=== PATIENT | female | born 1990 | race Caucasian/White ===

== ENCOUNTER 2017-02-24 09:57 | Emergency (ER) | payer MEDICAID ==
[2017-02-24 10:08] VITALS: BP 97/58; PULSE 85; RESP 17; TEMP 98.1; O2SAT 97
--- NOTE | 2017-02-24 10:30 | EDPHY ---
H & P Time Seen by Provider: 02/24/17 10:27 HPI/ROS: CHIEF COMPLAINT: Abdominal pain, recent surgery HISTORY OF PRESENT ILLNESS: This patient is a 26 year old female complaining of abdominal pain secondary to a laparoscopic hernia repair last , 02/20/[address] Wagoner. She states she had been taking oxycodone for pain, but felt quite drowsy with this medication and attempted to switch prescriptions over the weekend. She disposed of her pills in a pharmacy drop box before being informed that her prescription would not be able to be refilled. She has been taking ibuprofen and Tylenol for pain relief, but states these do not significantly reduce her discomfort. She endorses abdominal pain, cough, and constipation, and states that getting up out of bed is painful for her. She denies fever, shortness of breath, vomiting, or other associated symptoms. REVIEW OF SYSTEMS: Constitutional: No fever, no chills Eyes: No visual changes ENT: No sore throat Respiratory: No cough, no shortness of breath Cardiac: No chest pain Genitourinary: no dysuria Musculoskeletal: No leg pain or swelling Skin: No rash Neurological: No headache Psychiatric: No depression Past Medical/Surgical History: Laparoscopic 02/10/17, ovarian cyst, endometriosis. Social History: Lives in [place] Smoking Status: Current every day smoker Physical Exam: General Appearance: Alert, pleasant Eyes: Pupils equal and round, no conjunctival pallor ENT, Mouth: Mucous membranes moist Neck: Normal inspection Respiratory: Lungs are clear to auscultation Cardiovascular: Regular rate and rhythm Gastrointestinal: Well healing surgical wounds, clean dry and intact. Mild diffuse abdominal tenderness. Neurological: A&O, nonfocal, normal gait Skin: Warm and dry Extremities: Normal inspection Psychiatric: Mood and affect normal Constitutional: Initial Vital Signs Temperature (C) 36.7 C 02/24/17 10:05 Heart Rate 85 02/24/17 10:05 Respiratory Rate 17 02/24/17 10:05 Blood Pressure 97/58 L 02/24/17 10:05 O2 Sat (%) 97 02/24/17 10:05 O2 Delivery Mode Room Air Allergies/Adverse Reactions: No Known Allergies Allergy (Unverified 02/24/17 10:05) Home Medications: Medication Instructions Recorded Hydrocodone/APAP 5/325 [[place] 1 - 2 tab PO Q4H PRN #10 tab 02/24/17 5/325] Ondansetron Odt [Zofran Odt 4 mg 4 mg PO Q4 PRN #6 tab 02/24/17 (*)] Oxycodone HCl 02/24/17 Medical Decision Making ED Course/Re-evaluation: This patient is a 26 year old female presenting with postoperative pain and excessive drowsiness to Percocet. There is no evidence for wound infection or other surgical complication. Plan to discharge home in good condition with prescription for [place] for pain management and Zofran for nausea. The patient will follow up with her surgeon as scheduled. Return precautions discussed. The patient is comfortable with this plan. Differential Diagnosis: Includes though not limited to wound infection, abscess, cellulitis. Departure - Departure Disposition: Home, Routine, Self-Care Clinical Impression: Abdominal pain Qualifiers: Abdominal location: generalized Qualified Code(s): R10.84 - Generalized abdominal pain Condition: Good Instructions: Abdominal Pain (ED) Additional Instructions: 1. Follow up with Dr. Wagoner as scheduled. Call sooner for any additional concerns. 2. Take [place] as prescribed as needed for pain. 3. Take Zofran as prescribed as needed for nausea. 4. Return to the emergency department if you develop fever, chills, vomiting, diarrhea, or other worsening of condition. Referrals: Reynaldo Wagoner MD [Medical Doctor] - As per Instructions Prescriptions: Hydrocodone/APAP 5/325 [[place] 5/325] 1 - 2 tab PO Q4H PRN #10 tab PRN Reason: Pain, Moderate Ondansetron Odt [Zofran Odt 4 mg (*)] 4 mg PO Q4 PRN #6 tab PRN Reason: Nausea Report Scribed for: Rosa Elena Yin Report Scribed by: Josephine Parada Date of Report: 02/24/17 Time of Report: 11:43 Physician Review and Approval Statement: 02/24/17 11:43 Portions of this note were transcribed by a medical or surgical instrument maker. I personally performed a history, physical exam, medical decision making, and confirmed accuracy of information the transcribed note.
== END 2017-02-24 11:09 | disposition home or self-care (01) ==
DX: R10.84 Generalized abdominal pain (principal); F17.200 Nicotine dependence, unspecified, uncomplicated; G89.18 Other acute postprocedural pain

== ENCOUNTER 2018-05-18 21:33 | Emergency (ER) | payer SELFPAY ==
[2018-05-18] MEDS ORDERED: NS 1,000 ML IV ONE (21:53)
[2018-05-18 22:02] LABS: PLATELET COUNT 308 10^3/uL (150-400)
--- NOTE | 2018-05-18 22:28 | EDPHY ---
H & P <StephenChiara - Last Filed: 05/19/18 04:06> Smoking Status: Current every day smoker <Tyron Oliver - Last Filed: 05/19/18 16:07> Time Seen by Provider: 05/18/18 21:44 HPI/ROS: CHIEF COMPLAINT: Vaginal bleeding and concern for HISTORY OF PRESENT ILLNESS: Patient is a 28-year-old female he here with 1 day vaginal bleeding. She is concern for possible ectopic as she has suprapubic pain and left-sided pain. She has no prior history of ectopic . She is delivered by . States that yesterday she started with mild bleeding and then today progressed to large clots of blood. She has been through 1 pad since arrival in the emergency room. She takes oxycodone daily for chronic left shoulder pain but no other prescribed medications. Last menstrual period was at the end of March but she is uncertain as to the exact dates. REVIEW OF SYSTEMS: Constitutional: No fever, no chills. Eyes: No discharge. ENT: No sore throat. Cardiovascular: No chest pain, no palpitations. Respiratory: No cough, no shortness of breath. Gastrointestinal: No abdominal pain, no vomiting. Genitourinary: No hematuria. Musculoskeletal: No back pain. Skin: No rashes. Neurological: No headache. (Tyron Oliver) Physical Exam: General Appearance: Alert and no distress. Eyes: Pupils equal and round no injection. Respiratory: Chest is nontender, lungs are clear to auscultation. Cardiac: regular rate and rhythm. Gastrointestinal: Abdomen is soft and with suprapubic and left adnexal tenderness. No peritoneal signs. no masses, bowel sounds normal. Musculoskeletal: Neck is supple and nontender. Extremities have full range of motion and are nontender. Skin: No rashes or lesions. (Tyron Oliver) Constitutional: Initial Vital Signs Temperature (C) 36.8 C 05/18/18 21:37 Heart Rate 96 05/18/18 21:37 Respiratory Rate 18 05/18/18 21:37 Blood Pressure 110/77 05/18/18 21:37 O2 Sat (%) 99 05/18/18 21:37 O2 Delivery Mode Room Air Allergies/Adverse Reactions: No Known Allergies Allergy (Unverified 05/18/18 21:40) Home Medications: Medication Instructions Recorded Oxycodone HCl 02/24/17 Ondansetron Odt [Zofran Odt 4 mg 4 mg PO Q4 PRN #10 tab 05/19/18 (*)] Medical Decision Making - Diagnostics Imaging: Discussed imaging studies w/ call center operator Radiologist, I viewed and interpreted images myself <Chiara Mitchell - Last Filed: 05/19/18 04:06> <Tyron Oliver - Last Filed: 05/19/18 16:07> ED Course/Re-evaluation: PHYSICIAN DOCUMENTATION: The patient was evaluated and managed by the Physician Job Printer Apprentice. My co- signature indicates that I have reviewed this chart and I agree with the findings and plan of care as documented. I am the secondary supervising physician. This is a 28-year-old female who presents with abdominal pain and vaginal bleeding. HCG is elevated consistent with early . Ultrasound performed shows IUP with heart rate of 120s. The patient has a small subchorionic hemorrhage which may be the cause of her symptoms. She is Rh- negative thus will need RhoGA M. She lives in [place] but was here for her [employer] work. I have explained that she will need OBGYN follow-up in the next few days. She can come back to [place] for this or follow up with someone locally. We discussed return precautions. (Chiara Mitchell) - Data Points Laboratory Results: Laboratory Results 05/18/18 21:51 05/18/18 21:51 05/18/18 21:51 Patient ABO/Rh O NEGATIVE Antibody Screen NEGATIVE Bld Prod Order Rhogam READY Medications Given: Discontinued Medications Sodium Chloride (Ns) 1,000 mls @ 0 mls/hr IV ONCE ONE PRN Reason: Wide Open Stop: 05/18/18 21:54 Last Admin: 05/18/18 21:55 Dose: 1,000 mls Ondansetron HCl (Zofran Odt) 4 mg PO EDNOW ONE Stop: 05/18/18 23:41 Last Admin: 05/18/18 23:45 Dose: 4 mg Ondansetron HCl (Zofran Odt 4 Mg Prepack#2) 1 btl TAKEHOME EDNOW ONE Stop: 05/18/18 23:41 Last Admin: 05/18/18 23:45 Dose: 1 btl Departure <Chiara Mitchell - Last Filed: 05/19/18 04:06> <Tyron Oliver - Last Filed: 05/19/18 16:07> - Departure Disposition: Home, Routine, Self-Care Clinical Impression: Threatened miscarriage in early Condition: Good Instructions: Ondansetron (By mouth), Threatened Miscarriage (ED) Additional Instructions: Your ultrasound shows that you have a 6 week in your uterus that appears normal. The cause of your bleeding could be coming from the uterus. We called this a threatened miscarriage. There is no signs of an ectopic . You will need to have follow up with OBGYN within the week. If you cannot find a doctor locally I have listed our OBGYN doctor on-call. If you are using more than 1 pad per hour you will need to return to the emergency department for further care. I recommend that you start taking vitamins. Referrals: Nubia Floyd MD [Medical Doctor] - As per Instructions Prescriptions: Ondansetron Odt [Zofran Odt 4 mg (*)] 4 mg PO Q4 PRN #10 tab PRN Reason: Nausea/Vomiting, Can'T Take Po
[2018-05-18] MEDS ORDERED: ONDANSETRON 4MG PREPACK#2 BTL TAKEHOME ONE ×2 (23:39→23:40)
[2018-05-18] MEDS ORDERED: ONDANSETRON DISINTEGRATING 4 MG TAB ONE (23:39)
[2018-05-18] MEDS ORDERED: ONDANSETRON DISINTEGRATING 4 MG TAB PO ONE (23:40)
[2018-05-19 00:27] VITALS: BP 109/63
== END 2018-05-19 00:27 | disposition home or self-care (01) ==
DX: O20.0 Threatened abortion (principal); Z3A.01 Less than 8 weeks gestation of pregnancy